=== PATIENT | male | born 1965 | race Caucasian/White ===

== ENCOUNTER 2023-09-22 09:01 | Emergency (ER) | payer OTHER, SELFPAY ==
[2023-09-22 09:28] VITALS: BP 139/106
[2023-09-22 09:55] LABS: % Basophils 0.5 % (0-2); % Eosinophils 2.2 % (0-6); % Immature Granulocytes 0.2 % (0-0.5); % Lymphocytes 24.2 % (20.5-51.1); % Monocytes 10.5 % (1.7-9.3); % Neutrophils 62.4 % (42.2-75.2); Absolute Eosinophils 0.1 10^3/uL (0-0.7); Absolute Lymphocytes 1.4 10^3/uL (1.2-3.4); Absolute Monocytes 0.6 10^3/uL (0.1-0.6); Absolute Neutrophils 3.7 10^3/uL (1.4-6.5); Hematocrit 41.3 % (39.0-52.0); Hemoglobin 15.1 g/dL (13.0-18.0); Mean Corp Hgb Conc. 36.6 g/dL (33.0-37.0); Mean Corpuscular Hgb 31.9 pg (27.0-31.0); Mean Corpuscular Volume 87.3 fL (80.0-94.0); Mean Platelet Volume 8.6 fL (7.4-10.4); Nucleated Red Blood Cells % 0 % (-); Platelet Count 308 10^3/uL (130-400); Red Blood Cell Count 4.73 10^6/uL (4.70-6.10); Red Cell Dist. Width 11.4 % (11.5-14.5); White Blood Cell Count 5.9 10^3/uL (4.8-10.8)
[2023-09-22 10:14] LABS: ALT (SGPT) 30 U/L (0-50); AST (SGOT) 28 U/L (17-59); Albumin 4.8 g/dl (3.5-5.0); Alkaline Phosphatase 72 U/L (38-126); Blood Urea Nitrogen 32 mg/dl (9-20); Calcium 10.4 mg/dl (8.4-10.2); Carbon Dioxide 31 mmol/L (22-30); Chloride 93 mmol/L (98-107); Glucose 109 mg/dl (70-99); Potassium 3.9 mmol/L (3.5-5.1); Sodium 135 mmol/L (135-145); Total Bilirubin 1.3 mg/dl (0.2-1.3); Total Protein 7.9 g/dl (6.3-8.2); eGFR > 60.00
[2023-09-22 10:22] LABS: Troponin I < 0.012 ng/ml
--- NOTE | 2023-09-22 11:34 | ED.GENMED ---
History of Present Illness
General
Chief Complaint: Fatigue
Time Seen by Provider: 09/22/23 11:19
Travel History
Have you had any contact with someone who has COVID-19?: No
Do you have any symptoms of coronavirus? Fever > 100 degrees, chills, cough, shortness of breath, sore throat, loss of taste or smell, muscle aches, or headache?: No
History of Present Illness
History of Present Illness:
58-year-old male with history of hypertension and hyperlipidemia presents to the emergency department for evaluation of generalized weakness, poor appetite, and fatigue ongoing for the past month. States that over the past week his oral intake has
been profoundly diminished. Denies any initiation of new medications. Denies any recent URI or viral illnesses prior to onset of symptoms. He reports he is persistent daily chest tightness, nonexertional, nonpositional. Pain is nonpleuritic. He
also reports nausea without vomiting. States he felt briefly dizzy yesterday when he stood up from a seated position but this has not recurred today. No reported fevers or chills in the past week.
Past History
Past History
ED Past Medical History: None
ED Past Surgical History: Orthopedic
Social History
Tobacco: Non-smoker
Alcohol: Occasional
Drug: None
Personal:
Living: with family
Employment: Employed
Family History
Family History: Other (Noncontributory)
Review of Systems
Review of Systems
Allergies reviewed?: Yes
All Other Systems: ROS reviewed and negative except as documented in HPI and ROS
Phy Exam
Physical Exam
Physical Exam:
GEN: Well appearing, NAD, WDWN
Eyes: PERRLA, EOMs intact, no scleral icterus
HENT: NCAT, oral mucosa moist
Lungs: CTAB, no wheezes, rales, rhonchi, normal chest wall excursion
Cardiac: RRR, no M/R/G, no peripheral edema. Radial pulses 2+ bilat
Abdomen: S, NT, ND, NABS, no masses or hepatosplenomegaly
Neuro: AO x 3
MSK: No gross deformity or ecchymosis. No edema. No digital clubbing
Skin: No rashes, petechiae. Normal color, no pallor or jaundice.
Psych: Calm, cooperative, proper hygiene
Course
Orders/Labs/Results
Orders:
Orders
09/22/23 09:34
EKG [Electrocardiogram (*1)] Urgent
Reason for Study: Chest Pain
EKG- Treatment ONCE
09/22/23 09:39
CMP [Comprehensive Metabolic Panel] Urgent
Complete Blood Count/With Diff Urgent
Troponin I Urgent
09/22/23 11:35
0.9% Sodium Chloride 1000 ml [Nss] 1,000 ml IV BOLUS
CR Chest - 2 Views Urgent
Comment:
Reason For Exam: fatigue, chest tightness
09/22/23 13:29
Triamcinolone Acetonide [Kenalog-10] 10 mg INTRAARTIC NOW STA
Abnormal Lab Results
09/22/23
09:39
MCH 31.9 H pg
(27.0-31.0)
RDW 11.4 L %
(11.5-14.5)
Monocytes % 10.5 H %
(1.7-9.3)
Chloride 93 L mmol/L
(98-107)
Carbon Dioxide 31 H mmol/L
(22-30)
BUN 32 H mg/dl
(9-20)
Glucose 109 H mg/dl
(70-99)
Calcium 10.4 H mg/dl
(8.4-10.2)
09/22/23 09:39
09/22/23 09:39
Vital Signs
Initial and Last Documented VS:
Initial Vital Signs
Temp Pulse Resp BP Pulse Ox
98.3 F 74 18 139/106 99
09/22/23 09:28 09/22/23 09:28 09/22/23 09:28 09/22/23 09:28 09/22/23 09:28
Last Documented Vital Signs
Temp Pulse Resp BP Pulse Ox
98.3 F 74 18 139/106 99
09/22/23 09:28 09/22/23 09:28 09/22/23 09:28 09/22/23 09:28 09/22/23 09:28
MDM/Problems Addressed
MDM/Problems Addressed:
58-year-old male presenting for acute chest tightness over the past 2 days in conjunction with prolonged fatigue for the past month. He is noted to have acute renal insufficiency evidenced by elevated BUN/creatinine however this is likely not the
cause of the symptoms more so a product of his poor intake for the past week. His chest symptoms are nonexertional and he has a normal EKG and negative troponin. Do not feel strongly that this represents ACS however will refer through the chest
pain hotline for close cardiology follow-up given risk factors. Patient also requested intrabursal steroid injections to the bilateral greater trochanteric bursa, had last received these from his primary care physician in May. I obliged and
gave 5 mg of Kenalog to each bursa, injections were tolerated well
Do not suspect the chest tightness represents infectious etiology given clear chest x-ray and lack of abnormal lab work.
Comment
Comment:
Patient's EKG independently interpreted by me shows normal sinus rhythm at a rate of [address] changes concerning for ischemia, QTc of 427
Patient's chest x-ray independently interpreted by me shows no acute cardiopulmonary disease
*Critical Care Note
Total Time (30-74mins, 75-104mins- exclusive of procedures): Not Applicable
ED Attending Note
-
Portions of this chart may have been created with voice recognition software.� Occasional wrong word or��sound alike� substitutions may have occurred due to the inherent limitations of voice recognition software.
Discharge Plan
Departure
Patient Disposition: Home (Routine Discharge)
Date of Disposition: 09/22/23
Time of Disposition: 13:10
Patient with high blood pressure during this ER visit?: Yes
Discharge Problem:
Fatigue, Chest tightness
Instructions: Chest Pain DCA Follow Up
Prescriptions:
No Action
ondansetron 4 mg tablet,disintegrating
4 mg PO Q8H PRN (Reason: nausea and vomiting) 4 Days Qty: 10 0RF
ibuprofen 600 mg tablet
600 mg PO Q8H PRN (Reason: pain) Qty: 10 0RF
Referrals:
Patience Wells DO [Family Provider] -
Interventions
Interventions:
*Risk Screen - Suicide Last Done: 09/22/23 09:33
*General Assessment Last Done: 09/22/23 13:57
*Neglect/Abuse Screening Last Done: 09/22/23 09:33
ED- Fall Risk Assessment Last Done: 09/22/23 13:57
*ED COVID-19 Vaccine History Last Done: 09/22/23 09:28
*Nursing Disposition Last Done: 09/22/23 13:57
Discharge Date and Time
Discharge Date/Time: 09/22/23 13:57
[2023-09-22] MEDS: NSS 1000 IV (11:53)
[2023-09-22] MEDS: KENALOG-10 10 MG INTRAARTIC (13:45)
== END 2023-09-22 13:57 | disposition home or self-care (01) ==
LOC: EMR 09:01
PROVIDERS: EMERGENCY PHYSICIAN Emergency Medicine; FAMILY PHYSICIAN Family Medicine
DX: R53.83 Other fatigue (principal); R07.89 Other chest pain; I10 Essential (primary) hypertension; E78.5 Hyperlipidemia, unspecified
CPT/HCPCS: 99283; 96360; 71046; 80053; 84484; 85025; 93005

== ENCOUNTER → 2023-11-06 07:20 | Outpatient (REF) | payer OTHER, SELFPAY | LOC: DHCBS MAIN 07:20 | PROVIDERS: ATTENDING PHYSICIAN Physician Assistant Medical; FAMILY PHYSICIAN Family Medicine | DX: R07.89 Other chest pain (principal); R00.2 Palpitations; I49.3 Ventricular premature depolarization | CPT/HCPCS: 93306 ==